=== PATIENT | male | born 1960 | race African-American/Black ===

== ENCOUNTER 2018-04-11 04:41 | Observation (INO) | payer OTHER ==
--- OUTSIDE RECORDS SUMMARY | 2018-04-11 04:45 | XMS REPORT ---
:1960 [facility] [address] [place] [address] [address]. [address] [place] [address] Care Team Providers Name Role Phone Unavailable Unavailable Unavailable Payers Payer Name Policy Type Policy Number Effective Date Expiration Date Problems This patient has no known problems. Allergies, Adverse Reactions, Alerts Allergy Allergy Status Severity Reaction(s) Onset Inactive Treating Comments Name Type Date Date Clinician No Known DA Active U 2017-05 Allergies -17 00:00:0 0 Medications This patient has no known medications.
[2018-04-11 04:55] VITALS: BMI 31.7
[2018-04-11] MEDS ORDERED: ONDANSETRON 4 MG/2 ML VIAL IV PRN (05:03)
[2018-04-11] MEDS ORDERED: NITROGLYCERIN 0.4 MG/TAB SL ONE (05:07)
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
[2018-04-11] MEDS ORDERED: KETOROLAC 30 MG/ML INJ IV PRN (05:56)
[2018-04-11] MEDS ORDERED: HYDRALAZINE HCL 20 MG/ML VIAL IV PRN (05:57)
[2018-04-11 06:05] LABS: Absolute Lymphocytes (CBC) 2.5 K/uL (0.7-4.9); Absolute Monocytes 0.6 K/uL (0.1-1.3); Absolute Neutrophil 3.2 K/uL (1.8-8.0); Basophils % 0.5 % (0-1.3); Eosinophils % 3.6 % (0-4.4); Lymphocytes % 37.6 % (15.3-44.8); MPV 8.1 fL (7.6-11.3); Monocytes % 9.8 % (3.3-12.3); RBC Red Blood Cell Count 5.03 M/uL (4.33-5.43)
[2018-04-11 06:30] LABS: ALT/SGPT 90 U/L (12-78); AST/SGOT 39 U/L (15-37); Albumin 3.8 g/dL (3.4-5.0); Alkaline Phosphatase 71 U/L (45-117); BUN Blood Urea Nitrogen 13 mg/dL (7-18); Bicarbonate 26 mmol/L (21-32); Bilirubin Total 0.6 mg/dL (0.2-1.0); Glucose Level 97 mg/dL (74-106); Potassium 4.3 mmol/L (3.5-5.1); Protein, Total 7.6 g/dL (6.4-8.2); Sodium Level 136 mmol/L (136-145); Troponin I < 0.02 ng/mL (0.0-0.045)
[2018-04-11 06:48] VITALS: BP 140/73
[2018-04-11 07:44] VITALS: TEMP 97.7
[2018-04-11] MEDS ORDERED: ENOXAPARIN 40 MG/0.4 ML SQ SCH (09:00)
[2018-04-11] MEDS ORDERED: ASPIRIN 81 MG CHEWABLE TABLET PO SCH (09:00)
--- NOTE | 2018-04-11 12:40 | P.PN ---
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
--- NOTE | 2018-04-12 06:31 | EKG ---
Test Date: 2018-04-11 Test Time: 05:31:32 Entrepreneur: NATALIE MEASUREMENT RESULTS: Intervals: Rate: 83 SD: 172 QRSD: 78 QT: 378 QTc: 444 [place]: P: 51 SD: 172 QRS: -16 T: 22 INTERPRETIVE STATEMENTS: Normal sinus rhythm Normal ECG No previous ECG available for comparison Electronically Signed On 04-12-18 06:30:29 BOX ORDER PERSON by Vazquez Gonzalez
== END 2018-04-11 08:00 | disposition left against medical advice (07) ==
LOC: 4TH 04:41
PROVIDERS: ADMIT Internal Medicine; ATTEND Internal Medicine
DX: R07.9 Chest pain, unspecified (principal); I10 Essential (primary) hypertension
CPT/HCPCS: 36415; 80053; 84484; 85025; 93005; G0378